=== PATIENT | female | born 1930 | race Caucasian/White ===

== ENCOUNTER 2016-06-28 17:47 | Observation (INO) | payer MEDICARE, OTHER ==
--- OUTSIDE RECORDS SUMMARY | 2016-06-28 18:17 | XMS REPORT | Continuity of Care Document ---
:1930 Author Organization [facility] ([facility]) Address [address] [place] [address] Phone [phone] Care Team Providers Name Role Phone Ninfa Traore Primary Care Provider [phone] Source Comments This disclosure is being made pursuant to the Care Everywhere program, applicable federal and state laws, and may not contain all informaitonavailable regarding this patient.[facility] ([facility]) Active Allergies and Adverse Reactions Allergen Noted Date Severity Reactions Comments Iodinated Contrast Media - Oral And 10/07/2014 Shortness of breath Iv Dye Current Medications Prescription Sig. Disp. Refills Start Date End Date Status aspirin 81 mg EC Take 81 mg by Active tablet mouth daily atorvastatin 10 mg Take 1 Tab ( 30 Tab 11 11/04/2014 Active tablet mg total) by mouth daily PROAIR HFA 90 2 Puffs every 4 01/28/2015 Active mcg/Actuation hours as needed. inhaler LOSARTAN 50 mg Take 50 mg by 01/26/2015 Active tablet mouth daily. VESICARE 5 mg Take 5 mg by 01/26/2015 Active tablet mouth daily. albuterol 0.63 mg/3 Use 0.63 mg by Active mL nebulizer inhalation every solution 4 hours. Per nebulizer sodium chloride Use 2 Sprays 45 mL 11 02/29/2016 Active 0.65 % nasal spray into both nostrils every 1 hour. When awake HYDROcodone-acetami Take 1 tablet by 30 tablet 0 02/29/2016 Active nophen 5-325 mg per mouth every 4 tablet hours as needed for Pain. raNITIdine 150 mg Take 150 mg by Active tablet mouth 2 times daily. citalopram 10 mg Take 10 mg by Active tablet mouth daily. NAPROXEN SODIUM Active (ALEVE PO) amitriptyline 25 mg Take 25 mg by Discontinued tablet mouth at 7 bedtime. pramipexole 0.25 mg at bedtime. 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 MRA 05.: Occlusion of Left distal SFA, ~5 cm occluded segment, reconstituted via bridging collaterals from the profunda to dSFA/prox popliteal. Osteoporosis 12/04/2012 Vertebral compression fracture 12/04/2012 Hypertension 12/04/2012 Nicotine dependence 12/04/2012 Most Recent Encounters Date Type Specialty Providers Description 06/19/2016 Office Visit Otolaryngology Johnathan Chan MD Dx: Carcinoma of nasal septum (Primary Dx) 05/03/2016 Office Visit Otolaryngology Johnathan Chan MD Chief Comp: Patient Reported Reason For Visit Immunizations Name Dates Previously Given Next Due Influenza, unspecified 02/28/2012 Social History Tobacco Use Types Packs/Day Years Used Date Former Smoker Cigarettes 1 60 Quit: 04/12/2016 Smokeless Tobacco: Never Used Tobacco Cessation:Counseling Given: Yes Comments: Alcohol Use Drinks/Week oz/Week Comments Yes 0.5 Standard drinks or equivalent 0.0 Last Filed Vital Signs Vital Sign Reading Time Taken Blood Pressure 147/76 06/19/2016 9:55 AM SPECTROGRAPH OPERATOR Pulse 80 06/19/2016 9:55 AM SPECTROGRAPH OPERATOR Temperature 36.7 C (98.1 F) 06/19/2016 9:55 AM SPECTROGRAPH OPERATOR Respiratory Rate 22 02/29/2016 5:30 PM CDT Height 1.448 m (4' 9") 06/19/2016 9:55 AM SPECTROGRAPH OPERATOR Weight 53.5 kg (117 lb 15.1 oz) 06/19/2016 9:55 AM SPECTROGRAPH OPERATOR Body Mass Index 25.52 06/19/2016 9:55 AM SPECTROGRAPH OPERATOR Oxygen Saturation 96% 02/29/2016 11:18 AM CDT Plan of Care Health Maintenance Due Date Last Done Comments Hepatitis B Vaccine (1 of 3 - Primary Series) 1930 Tdap Vaccine 1940 Lipid Disorder Screening 1947 Td Vaccine 1947 Zoster Vaccine 1989 Pneumococcal Vaccine (1 of 2 - PCV13) 1994 Influenza Vaccine: Seasonal (#1) 12/20/2015 02/28/2012 Results from Last 3 Months Not on file
[2016-06-28] MEDS ORDERED: MORPHINE SULFATE 2 MG/ML DISP.SYRIN ONE (18:49)
[2016-06-28] MEDS ORDERED: MORPHINE SULFATE 2 MG/ML DISP.SYRIN IV ONE (18:50)
[2016-06-28 18:51] LABS: Hematocrit 40.7 % (37.0-47.0); Hemoglobin 13.4 gm/dL (12.5-16.0); Mean Cell Volume 96.4 fl (78-100); Mean Corpuscular Hemoglobin 31.8 pg (27-31); Mean Corpuscular Hgb Conc 32.9 g/dl (32-36); Mean Platelet Volume 9.8 fl (6.0-9.5); Neutrophil % 82.6 % (42-75.0); Platelet Count 225 K/mm3 (150-450); Red Blood Count 4.22 M/mm3 (4.2-5.4); Red Cell Distribution Width 11.9 % (11.5-14.0); White Blood Count 14.5 K/mm3 (4.0-10.5)
[2016-06-28] MEDS ORDERED: ONDANSETRON HCL/PF 2 MG/ML VIAL ONE (18:57)
[2016-06-28 19:04] LABS: Prothrombin Time (Patient) 10.5 Seconds (9.4-11.4)
[2016-06-28] MEDS ORDERED: ONDANSETRON HCL/PF 2 MG/ML VIAL IV ONE (19:05)
[2016-06-28 19:08] LABS: INR 1.01 INR (0.90-1.10)
[2016-06-28 19:09] LABS: ALT 23 U/L (19-67); AST 16 U/L (0-48); Albumin * 3.6 gm/dl (3.4-5.0); Alkaline Phosphatase * 122 U/L (50-170); Anion Gap 11.4 mmol/L (6.8-13.8); BUN/Creatinine Ratio 25.4 (9.0-21.6); Bilirubin, Total 0.4 mg/dL (0.0-1.1); Blood Urea Nitrogen 17 mg/dL (3-23); Ca. Corrected For Albumin 9.4 mg/dL (8.4-10.2); Calcium * 9.4 mg/dL (7.9-10.9); Carbon Dioxide 30.4 mmol/L (24-32.6); Chloride 100 mmol/L (97-106); Glucose * 99 mg/dL (70-110); Potassium 4.8 mmol/L (3.4-4.6); Sodium 137 mmol/L (132-142); Total Protein 7.4 gm/dL (6.2-8.2); Troponin I Less than 0.017 ng/ml (0.00-0.10)
--- NOTE | 2016-06-28 19:37 | ERNOTE ---
Trauma/Assault HPI - Narrative Date of Service: 06/28/16 - General Stated Complaint: FALL Time Seen by Provider: 06/28/16 18:09 Source: patient Exam Limitations: no limitations - Immun/Allergies/Home Medications Immunizations: IMMUNIZATION HX Immunizations Up to Date Yes History of Influenza Vaccine Yes Hx Pneumococcal Vaccination Yes Allergies/Adverse Reactions: Allergies Iodinated Contrast Media - IV Dye Allergy (Severe, Verified 06/28/16 17:58) Anaphylaxis iodine Allergy (Severe, Verified 06/28/16 17:58) Anaphylaxis Home Medications: HOME MEDICATIONS Albuterol Sulfate/Ipratropium [Duoneb 2.5-0.5MG/3ML Soln] 3 ml IH QID #120 vial 02/13/16 [Last Taken Unknown] Aspirin [Children's Aspirin] 81 mg PO DAILY 02/13/16 [Last Taken Unknown] Losartan Potassium [Cozaar] 50 mg PO DAILY 02/13/16 [Last Taken Unknown] Nebulizer [Compact Ultrasonic Nebulizer] 1 each QID #1 kit 02/13/16 [Last Taken Unknown] Solifenacin Succinate [Vesicare] 5 mg PO DAILY 02/13/16 [Last Taken Unknown] ALPRAZolam [Xanax] 0.25 mg PO TID 04/11/16 [Last Taken Unknown] Atorvastatin Calcium 10 mg PO HS 04/11/16 [Last Taken Unknown] Citalopram Hydrobromide [Celexa] 10 mg PO DAILY 04/11/16 [Last Taken Unknown] Doxylamine Succinate [Unisom] 25 mg PO HS 04/11/16 [Last Taken Unknown] Ranitidine HCl [Zantac] 150 mg PO QPM 04/11/16 [Last Taken Unknown] Azithromycin [Zithromax] 250 mg PO DAILY #3 tablet 04/13/16 [Last Taken Unknown] Cefdinir [Omnicef] 300 mg PO Q12H #20 cap 04/13/16 [Last Taken Unknown] predniSONE [Prednisone] 40 mg PO DAILY #24 tablet 04/13/16 [Last Taken Unknown] - History of Present Illness Narrative: Patient presents to the ED with dizziness, fall and right hip pain. She relates that around 3pm , over 4 hours ago she became dizzy and off balance. This persisted but she then fell. She fell and could not get up d/t right hip pain. He denies neck pain. She filally got to her life alert and was brought in by ambulance. Unable to bear weight. No fever. Mild PATTERSON. No syncope. She denies new SOB. No abdominal pain or CP. Her primary c/o is right hip pain, can be severe with movement, better with rest. No acute weakness but dizziness and off balance feeling for over 4 hours. Location Occurred: Reports: home Pain Location: Reports: other - right hip Method of Injury: Reports: fall Severity: severe Modifying Factors - (Improves): Reports: rest Modifying Factors - (Worsens): Reports: movement Loss of Consciousness: Reports: no loss of consciousness Associated Symptoms - Trauma: Reports: headache, dizziness, lightheadedness, trouble walking Review of Systems - Review of Systems Constitutional: Absent: fever Respiratory: Present: other - no new SOB Cardiology: Absent: chest pain Gastrointestinal/Abdominal: Absent: abdominal pain All Other Systems: All systems neg except as marked - Patient's Past Medical History Patient History - Medical: Anxiety, Depression, Migraines, Osteoporosis, Other Patient History - Cardiac/Respiratory: No pertinent hx Patient History - Cancer: Other Patient History - Surgical Procedures: Back Surgery, Cataracts, T & A, Other Patient History - Other: None - Family History Mother Family History - Medical: Arthritis, Osteoarthritis Father Family History - Medical: Alzheimer's Disease - Social History Living Situations: alone Abuse History: No History of abuse Psych History: Hx of Anxiety, Hx of Depression Does anyone smoke in the home?: No Smoking Status: Former smoker Alcohol Use: none Drug Use: none - Immunizations Immunizations Up to Date: Yes Hx Pneumococcal Vaccination: Yes History of Influenza Vaccine: Yes Physical Exam - Physical Exam General Appearance: Present: alert, no apparent distress Eye Exam: Normal inspection: bilateral, PERRL: bilateral Ears, Nose, Throat: Present: normal ENT inspection Neck: Present: normal inspection, nontender Respiratory: Present: other - few scattered wheezes, pt states her lungs are much improved from prior. Cardiovascular/Chest: Present: regular rate, rhythm, normal peripheral pulses Peripheral Pulses: N=norm/S=strong/W=weak/B=bound/A=absent: Dorsalis-pedis (R): Normal Gastrointestinal/Abdominal: Present: normal bowel sounds, nontender, soft, no organomegaly. Absent: tenderness Back Exam: Present: no vertebral tenderness Extremity Exam: Present: other - Pain with ROM right hip. Tendrness right hip Neurological Exam: Present: alert, acid mixer II-XII nml as tested, other - no proinator drift, finger to nose wnl. Cannot lift left leg off the bed d/t pain but can lift left leg. No clear acute stroke findings. Skin Exam: Present: warm/dry ED Progress - Results and Orders Patient's Lab Results:: I have reviewed the patient's lab results. - Vital Signs Patient's Vital Signs:: I have reviewed the patient's vital signs. Vital Signs: Vital Signs 06/28/16 06/28/16 17:51 18:46 Temperature 37.2 C Pulse Rate 95 95 Respiratory 22 H 21 H Rate Blood Pressure 189/90 O2 Sat by Pulse 94 93 Oximetry - EKG EKG read: Interp. by me EKG Comments: Indeterminate rhythm. Rate 73. No STEMI. Non-specific ST/T wave changes. - Progress/Reassessment Chief Complaint: Fall - Transfer of Care Physician Sign Out: Harsh Spears Receiving Physician: Stevan Knight Pending Results: CT/MRI results, Labs, X-ray results Expected Disposition: Admit Departure Clinical Impression: Fall, Hip pain, Dizziness - Departure
[2016-06-28 21:05] LABS: Urine Bilirubin Negative (NEGATIVE); Urine Blood Negative /ul (NEGATIVE); Urine Ketone Negative (NEGATIVE); Urine Nitrite Negative (NEGATIVE); Urine Protein 15 mg/dL (NEGATIVE); Urine Specific Gravity 1.025 SP.GR. (1.005-1.010); Urine Urobilinogen Normal (NORMAL)
--- OUTSIDE RECORDS SUMMARY | 2016-06-28 21:23 | XMS REPORT | Continuity of Care Document ---
:1930 Author Organization [facility] ([facility]) Address [address] [place] [address] Phone [phone] Care Team Providers Name Role Phone Ninfa Traore Primary Care Provider [phone] Source Comments This disclosure is being made pursuant to the Care Everywhere program, applicable federal and state laws, and may not contain all informaitonavailable regarding this patient.[facility] ([facility]) Active Allergies and Adverse Reactions Allergen Noted [...] Taken Blood Pressure 147/76 06/19/2016 9:55 AM DECK ENGINEER Pulse 80 06/19/2016 9:55 AM DECK ENGINEER Temperature 36.7 C (98.1 F) 06/19/2016 9:55 AM DECK ENGINEER Respiratory Rate 22 02/29/2016 5:30 PM CDT Height 1.448 m (4' 9") 06/19/2016 9:55 AM DECK ENGINEER Weight 53.5 kg (117 lb 15.1 oz) 06/19/2016 9:55 AM DECK ENGINEER Body Mass Index 25.52 06/19/2016 9:55 AM DECK ENGINEER Oxygen Saturation 96% 02/29/2016 11:18 AM CDT [...]
[2016-06-28 21:24] LABS: Urine Appearance Clear; Urine Bacteria None Seen; Urine Color Yellow; Urine RBC None Seen /hpf (0-5); Urine WBC None Seen /hpf (0-5)
--- NOTE | 2016-06-28 21:28 | HP ---
Chief Complaint - Chief Complaint Date of Service: 06/28/16 Time of Service: 21:21 Chief Complaint: "Fall, weakness, dizziness". Source of HPI- Pt; reliable, ER provider report. History of Present Illness: Ms. Kirkpatrick is a 86-yr-old [place] pt of Dr. Ninfa Traore with a PMH of: Anxiety, Asthma, GERD, COPD, HTN, HLD, Osteoporosis & Restless Legs Syndrome. Pt states that at approximately 230pm today, she developed abdominal pain and the discomfort caused her to fall over on the sofa. She chose to go to bed at 4pm. She got up at 430 pm to use the toilet but on her her way to bathroom, she felt dizzy. She managed to get back to her room but, while looking for clean undergarments in her drawer, she fell backwards and landed on her RT side of the body. She denies any trauma/injury to the head. She managed to crawl back in bed where she alerted the Life Line and she was brought to the [facility] ER by the emergency squad. During evaluation at the ED, the CXR did not show any evidence of Pneumonia or Pleural effusion. However, the was a RT lung mass seen and according to the pt, she has an up-coming appt for lung biopsy next week at [facility] in [place]. The head CT did not have acute findings. On the other hand, the Pelvis X-ray film showed RT Pubic Ramus Fracture, but no dislocation was noted. Pt will be admitted under observation status due to inability to mobilize and for pain management until evaluated by the industry segment specialist in am. - Patient's Past Medical History Patient History - Medical: Anxiety, Depression, Migraines, Osteoporosis, Other Patient History - Cardiac/Respiratory: No pertinent hx, Asthma, COPD, Hypertension, Hyperlipidemia Patient History - Cancer: Other Patient History - Surgical Procedures: Back Surgery, Cataracts, T & A, Other Patient History - Other: None - Family History Mother Family History - Medical: Arthritis, Osteoarthritis Father Family History - Medical: Alzheimer's Disease - Social History Living Situations: alone Abuse History: No History of abuse Psych History: Hx of Anxiety, Hx of Depression Does anyone smoke in the home?: No Smoking Status: Former smoker - quit 2 month ago. Was a 1ppd smoker for 67 yrs. Alcohol Use: none Drug Use: none - Immunizations Immunizations Up to Date: Yes Hx Pneumococcal Vaccination: Yes History of Influenza Vaccine: Yes Review Of Systems (GEN) - Review of Systems Generalized/Overall Review: Present: Weakness. Absent: Chills, Fever, Fatigue, Weight loss EENTM: Absent: Eye Pain, Blurred Vision, Double Vision, Nose Congestion, Throat Pain Respiratory: Absent: Cough, Shortness of Breath, Wheezing Cardiac: Absent: Chest Pain, Edema, Palpitations Abdominal: Absent: Nausea, Vomiting, Abdominal Pain, Constipation, Diarrhea, Melena Genitourinary: Present: Frequency, Incontinent. Absent: Hematuria Musculoskeletal: Present: Joint Pain, Other - Groin pain. Neurological: Present: Headache, Anxiety, Depressed Skin: Present: Dryness. Absent: Bruising Endocrine: Present: Intolerance to Cold. Absent: Intolerance to Heat, Increased Hunger, Increased Thirst Misc: All systems neg except as marked Allergies/Adverse Reactions: Allergies Allergy/AdvReac Type Severity Reaction Status Date / Time Iodinated Contrast Media - Allergy Severe Anaphylaxis Verified 06/28/16 17:58 IV Dye iodine Allergy Severe Anaphylaxis Verified 06/28/16 17:58 Home Medications: HOME MEDICATIONS Albuterol Sulfate/Ipratropium [Duoneb 2.5-0.5MG/3ML Soln] 3 ml IH QID #120 vial 02/13/16 [Last Taken Unknown] Losartan Potassium [Cozaar] 50 mg PO DAILY 02/13/16 [Last Taken Unknown] Nebulizer [Compact Ultrasonic Nebulizer] 1 each QID #1 kit 02/13/16 [Last Taken Unknown] Atorvastatin Calcium 10 mg PO HS 04/11/16 [Last Taken Unknown] Citalopram Hydrobromide [Celexa] 10 mg PO DAILY 04/11/16 [Last Taken Unknown] Exam - Exam Vital Signs: Vital Signs - Last Taken Temp 37.2 C 06/28/16 17:51 Pulse 114 H 06/28/16 21:04 Resp 23 H 06/28/16 21:04 BP 189/90 06/28/16 17:51 Pulse Ox 91 06/28/16 21:04 Constitutional: Present: Alert, Oriented x3, Cooperative, Mild distress, Elderly ENT Exam: Present: normal ENT inspection, hearing grossly normal, dry mucous membranes. Absent: nasal congestion, nasal drainage Eye Exam: bilateral eye: normal inspection, PERRL Neck: Present: full range of motion, supple, normal inspection, trachea midline Back Exam: Present: no CVA tenderness Breasts: Present: Exam deferred Respiratory: Present: lungs clear, no accessory muscle use, No wheezing Cardiovascular/Chest: Present: normal peripheral pulses, regular rate, rhythm, no murmur Abdomen: Present: Normal bowel sounds, soft, nontender /Rectal: Present: Other - Chirinos Catheter. Extremity: Present: no pedal edema, other - Limited ROM on RLE, unable to bear weight. Tenderness on Groin, Pain with passive ranging of RT hip. Skin Exam: Present: warm/dry, no cyanosis Lymphatic: Present: no adenopathy Neurologic: Present: no motor/sensory deficits, alert, normal mood/affect, oriented x 3. Absent: dizzy/light-headedness Appearance: Present: appropriate appearance, appropriate insight, no memory impairment Eye contact: Present: cooperative, good eye contact, normal speech Thoughts: Present: normal thought pattern, no apparent hallucination Diagnostic Studies: Laboratory Results WBC 14.5 K/mm3 (4.0-10.5) H 06/28/16 18:50 RBC 4.22 M/mm3 (4.2-5.4) 06/28/16 18:50 Hgb 13.4 gm/dL (12.5-16.0) 06/28/16 18:50 Hct 40.7 % (37.0-47.0) 06/28/16 18:50 MCV 96.4 fl (78-100) 06/28/16 18:50 MCH 31.8 pg (27-31) H 06/28/16 18:50 MCHC 32.9 g/dl (32-36) 06/28/16 18:50 RDW 11.9 % (11.5-14.0) 06/28/16 18:50 Plt Count 225 K/mm3 (150-450) 06/28/16 18:50 MPV 9.8 fl (6.0-9.5) H 06/28/16 18:50 Immature Gran % (Auto) 0.90 % (0.001-0.429) H 06/28/16 18:50 Immature Gran # (Auto) 0.13 K/mm3 (0.000-0.0310) H 06/28/16 18:50 Neutrophils % 82.6 % (42-75.0) H 06/28/16 18:50 Lymphocytes % 7.5 % (20-51) L 06/28/16 18:50 Monocytes % 7.0 % (0.0-9) 06/28/16 18:50 Eosinophils % 1.7 % (0.0-3.0) 06/28/16 18:50 Basophils % 0.3 % (0.0-1.0) 06/28/16 18:50 Nucleated RBC % 0.0 k/mm3 (0-1) 06/28/16 18:50 Neutrophils # 12.0 K/mm3 (1.3-6.0) H 06/28/16 18:50 Lymphocytes # 1.1 k/mm3 (1.5-3.5) L 06/28/16 18:50 Monocytes # 1.0 k/mm3 (0.0-1.0) 06/28/16 18:50 Eosinophils # 0.2 k/mm3 (0.0-0.7) 06/28/16 18:50 Absolute Basophils 0.1 k/mm3 (0.0-0.1) 06/28/16 18:50 PT 10.5 Seconds (9.4-11.4) 06/28/16 18:50 INR (Anticoag Therapy) 1.01 INR (0.90-1.10) 06/28/16 18:50 Sodium 137 mmol/L (132-142) 06/28/16 18:50 Plasma Sodium 137 mmol/L (130-142) 06/28/16 18:50 Potassium 4.8 mmol/L (3.4-4.6) H 06/28/16 18:50 Chloride 100 mmol/L (97-106) 06/28/16 18:50 Carbon Dioxide 30.4 mmol/L (24-32.6) 06/28/16 18:50 Anion Gap 11.4 mmol/L (6.8-13.8) 06/28/16 18:50 BUN 17 mg/dL (3-23) 06/28/16 18:50 Creatinine 0.67 mg/dL (0.4-1.4) 06/28/16 18:50 Est GFR (Non-Af Amer) 88 mL/min (60-130) D 06/28/16 18:50 BUN/Creatinine Ratio 25.4 (9.0-21.6) H 06/28/16 18:50 Random Glucose 99 mg/dL (70-110) 06/28/16 18:50 Calcium 9.4 mg/dL (7.9-10.9) 06/28/16 18:50 Calcium Adj for Albumin 9.4 mg/dL (8.4-10.2) 06/28/16 18:50 Total Bilirubin 0.4 mg/dL (0.0-1.1) 06/28/16 18:50 AST 16 U/L (0-48) 06/28/16 18:50 ALT 23 U/L (19-67) 06/28/16 18:50 Alkaline Phosphatase 122 U/L (50-170) 06/28/16 18:50 Troponin I Less than 0.017 ng/ml (0.00-0.10) 06/28/16 18:50 Total Protein 7.4 gm/dL (6.2-8.2) 06/28/16 18:50 Albumin 3.6 gm/dl (3.4-5.0) 06/28/16 18:50 Assessment/Plan - Assessment/Plan (1) Pubic ramus fracture Assessment: Ms Kirkpatrick sustained a RT pubic Ramus Fracture during a fall at home today. She will be admitted under observation status for pain management. Orthopedics -Dr. Aldridge notified by the ERP and he is aware and will evaluate pt in am if there is any need for surgical intervention. Hospital admission is indicated due to inability to ambulate and intractable pain. Will involve PT for early mobilization. Problem: Acute (2) HLD (hyperlipidemia) Problem: Chronic (3) HTN (hypertension) Problem: Chronic (4) COPD (chronic obstructive pulmonary disease) Problem: Chronic (5) Anxiety Problem: Chronic (6) Migraine Problem: Chronic
[2016-06-28] MEDS: NORMAL SALINE 1,000 ML IV PRN (22:30)
[2016-06-28] MEDS: HYDROmorphone HCL 1 MG/ML DISP.SYRIN IV PRN (22:34)
[2016-06-29] MEDS ORDERED: HYDROcodone/ACETAMINOPHEN 1 EACH TABLET PO PRN (00:28)
[2016-06-29] MEDS ORDERED: ALBUTEROL SULFATE 200 PUFF INHALER IH PRN (00:28)
[2016-06-29] MEDS ORDERED: ALBUTEROL SULFATE/IPRATROPIUM 3 ML NEBU IH PRN (00:28)
[2016-06-29] MEDS: HYDROmorphone HCL 1 MG/ML DISP.SYRIN IV PRN ×3 (01:45→08:00)
[2016-06-29 05:59] LABS: Hematocrit 39.1 % (37.0-47.0); Hemoglobin 12.7 gm/dL (12.5-16.0); Mean Cell Volume 97.5 fl (78-100); Mean Corpuscular Hemoglobin 31.7 pg (27-31); Mean Corpuscular Hgb Conc 32.5 g/dl (32-36); Mean Platelet Volume 9.8 fl (6.0-9.5); Neutrophil # 7.9 K/mm3 (1.3-6.0); Neutrophil % 81.9 % (42-75.0); Platelet Count 213 K/mm3 (150-450); Red Blood Count 4.01 M/mm3 (4.2-5.4); White Blood Count 9.7 K/mm3 (4.0-10.5)
[2016-06-29 06:12] LABS: Anion Gap 12.6 mmol/L (6.8-13.8); BUN/Creatinine Ratio 23.9 (9.0-21.6); Calcium * 8.3 mg/dL (7.9-10.9); Potassium 4.6 mmol/L (3.4-4.6)
[2016-06-29] MEDS ORDERED: ALBUTEROL SULFATE 2.5 MG/0.5 ML VIAL.NEB IH PRN ×2 (06:29→11:19)
[2016-06-29] MEDS: NORMAL SALINE 1,000 ML IV PRN ×2 (06:35→23:24)
[2016-06-29] MEDS: MULTIVIT WITH IRON-MINERALS 1 TAB TABLET PO SCH (10:06)
[2016-06-29] MEDS: CITALOPRAM HYDROBROMIDE 10 MG TABLET PO SCH (10:06)
[2016-06-29] MEDS: TIOTROPIUM BROMIDE 5 CAP INHALER IH SCH (10:07)
[2016-06-29] MEDS: LOSARTAN POTASSIUM 50 MG TABLET PO SCH (10:07)
[2016-06-29] MEDS: HYDROcodone/ACETAMINOPHEN 1 EACH TABLET PO SCH ×3 (10:07→22:18)
[2016-06-29] MEDS: FAMOTIDINE 20 MG TABLET PO SCH ×2 (10:07→20:10)
[2016-06-29] MEDS: OXYBUTYNIN CHLORIDE 5 MG TABLET PO SCH (10:07)
[2016-06-29] MEDS: POLYETHYLENE GLYCOL 3350 119 GM BTL PO SCH (10:07)
--- NOTE | 2016-06-29 19:10 | PN ---
Subjective - Date and Time Seen Date: 06/29/16 Time: 09:15 Subjective Narrative: Patient reports too much pain to ambulate, weak. Denies f/c/n/v. Objective - Vitals Vitals: Last Vital Signs Temp 37.6 C H 06/29/16 15:00 Pulse 89 06/29/16 15:00 Resp 20 06/29/16 15:00 BP 140/57 06/29/16 15:00 Pulse Ox 90 06/29/16 15:00 - Abnormal Lab Findings Abnormal Lab Findings: Abnormal Lab Results 06/29/16 06/29/16 Range/Units 05:43 05:43 RBC 4.01 L (4.2-5.4) M/mm3 MCH 31.7 H (27-31) pg MPV 9.8 H (6.0-9.5) fl Neutrophils % 81.9 H (42-75.0) % Lymphocytes % 8.4 L (20-51) % Neutrophils # 7.9 H (1.3-6.0) K/mm3 Lymphocytes # 0.8 L (1.5-3.5) k/mm3 BUN/Creatinine Ratio 23.9 H (9.0-21.6) Random Glucose 122 H (70-110) mg/dL - Exam Constitutional: Present: Alert, Oriented x3, Cooperative Cardiovascular/Chest: Present: regular rate, rhythm, systolic murmur - 2+ Abdomen: Present: Normal bowel sounds, soft, nontender, nondistended Skin Exam: Present: normal color, warm/dry, no cyanosis Cauti Physician Documentation - Urinary Catheter Management Urethral (Chirinos) Date of Insertion: 06/28/16 Time of Insertion: 21:04 Assessment/Plan - Problems/Diagnosis (1) Pubic ramus fracture Problem: Acute Qualifiers: Fracture type: closed Narrative: Patient will need continued PT for strengthening. Unable to ambulate adequately , will need pen[facility]entiary placement for therapy.
[2016-06-29] MEDS ORDERED: PRAMIPEXOLE DI-HCL 0.5 MG TABLET PO SCH (21:00)
[2016-06-29] MEDS ORDERED: ROSUVASTATIN CALCIUM 10 MG TABLET PO SCH (21:00)
[2016-06-29] MEDS ORDERED: ATORVASTATIN CALCIUM 10 MG TABLET PO SCH (21:00)
[2016-06-29] MEDS: ONDANSETRON HCL/PF 2 MG/ML VIAL IV PRN (22:05)
[2016-06-30] MEDS: ONDANSETRON HCL/PF 2 MG/ML VIAL IV PRN ×2 (02:34→06:59)
[2016-06-30] MEDS: HYDROcodone/ACETAMINOPHEN 1 EACH TABLET PO SCH ×2 (04:44→09:00)
[2016-06-30 06:54] VITALS: BP 150/72
[2016-06-30] MEDS: NORMAL SALINE 1,000 ML IV PRN (08:34)
[2016-06-30] MEDS ORDERED: ALPRAZolam 0.25 MG TABLET PO PRN (08:44)
[2016-06-30] MEDS: HYDROmorphone HCL 1 MG/ML DISP.SYRIN IV PRN (08:50)
[2016-06-30] MEDS: CITALOPRAM HYDROBROMIDE 10 MG TABLET PO SCH (08:52)
[2016-06-30] MEDS: OXYBUTYNIN CHLORIDE 5 MG TABLET PO SCH (08:52)
[2016-06-30] MEDS: FAMOTIDINE 20 MG TABLET PO SCH (08:52)
[2016-06-30] MEDS: MULTIVIT WITH IRON-MINERALS 1 TAB TABLET PO SCH (08:52)
[2016-06-30] MEDS: TIOTROPIUM BROMIDE 5 CAP INHALER IH SCH (08:52)
[2016-06-30] MEDS: LOSARTAN POTASSIUM 50 MG TABLET PO SCH (08:52)
[2016-06-30] MEDS: POLYETHYLENE GLYCOL 3350 119 GM BTL PO SCH (08:52)
--- NOTE | 2016-06-30 11:49 | DS ---
(1) Pubic ramus fracture Diagnosis(s): Elham is an 86 yo female admitted for pubic ramus fracture. Fracture was stable and did not require surgery. Recommendations from ortho for PT. Patient was admitted to observation for pain control and therapy. She was unable to ambulate without assistance and will need continued therapy at [facility]. She is otherwise medically stable. Problem: Acute Qualifiers: Fracture type: closed (2) Lung mass Diagnosis(s): She has outpatient plans to have this biopsied by Dr. Sifuentes. Discussed that if the patient and family would like to set up CT guiding lung biopsy here that we can. They will plan to discuss with Dr. Sifuentes. Problem: Acute (3) Tobacco abuse Problem: Chronic (4) Hypoxia Problem: Acute Procedures Performed: none Discharge Disposition: [facility] Disposition: [facility] Condition: Fair Discharge Activity: Activity as tolerated Discharge Diet: General/regular food Care Home Therapy: Physicial Therapy, Occupation Therapy Referrals: Gurdeep Ohara MD [Staff Physician] - (To follow at [facility]) Problem Oriented Discharge Instructions to Patient/Family: Simple Pelvic Fracture, Adult Additional Patient Instructions (free text): Oxygen 2lpm continuous, may wean off oxygen as able to keep oxygen saturation > 90% Right hip and pelvis xray in 2 weeks after discharge. Prescriptions (Any new or edited meds): ALPRAZolam [Xanax] 0.25 mg PO TID PRN #90 tablet PRN Reason: Anxiety Hydrocodone/Acetaminophen [Lorcet 5-325 mg Tablet] 1 each PO Q6H PRN #120 tablet PRN Reason: Pain Pramipexole Di-HCl [Mirapex] 0.25 mg PO HS #30 tablet Complete Home Medications List: Complete Home Medication List: Albuterol Sulfate/Ipratropium [Duoneb 2.5-0.5MG/3ML Soln] 3 ml IH QID #120 vial 02/13/16 Losartan Potassium [Cozaar] 50 mg PO DAILY 02/13/16 Nebulizer [Compact Ultrasonic Nebulizer] 1 each MC QID #1 kit 02/13/16 Atorvastatin Calcium 10 mg PO HS 04/11/16 Citalopram Hydrobromide [Celexa] 10 mg PO DAILY 04/11/16 Albuterol Sulfate [Proair Hfa] 1 - 2 puff IH Q6H PRN 06/28/16 Ibuprofen [Motrin] 200 - 800 mg PO Q8H PRN 06/28/16 Multivitamin [One Daily Essential] 1 each PO DAILY 06/28/16 Oxybutynin Chloride [Ditropan] 5 mg PO DAILY 06/28/16 Polyethylene Glycol 3350 [Miralax] 17 gm PO DAILY 06/28/16 Ranitidine HCl [Heartburn Relief] 150 mg PO BID 06/28/16 Tiotropium [place] [Spiriva] 18 mcg IH DAILY 06/28/16 ALPRAZolam [Xanax] 0.25 mg PO TID PRN #90 tablet 06/30/16 Hydrocodone/Acetaminophen [Lorcet 5-325 mg Tablet] 1 each PO Q6H PRN #120 tablet 06/30/16 Pramipexole Di-HCl [Mirapex] 0.25 mg PO HS #30 tablet 06/30/16 Amb Orders for Discharge: Hip & Pelvis 2-3 Views RT * Time Frame: 2 Weeks, Facility: [facility], Location: Radiology Pelvis 1 View * Time Frame: 2 Weeks, Facility: [facility], Location: Radiology
== END 2016-06-30 13:05 ==
LOC: ER 17:47 → UNDOADMOB 21:19 → MS 21:19
PROVIDERS: ADMIT Nurse Practitioner; ATTEND Family Medicine
PROC: 0T9B70Z Drainage of Bladder with Drainage Device, Via Natural or Artificial Opening (ICD-10-PCS; principal; 2016-06-28)
DX: S32.511A Fracture of superior rim of right pubis, initial encounter for closed fracture (principal); R53.1 Weakness; F41.9 Anxiety disorder, unspecified; K21.9 Gastro-esophageal reflux disease without esophagitis; F17.200 Nicotine dependence, unspecified, uncomplicated; M81.0 Age-related osteoporosis without current pathological fracture; I10 Essential (primary) hypertension; J44.9 Chronic obstructive pulmonary disease, unspecified; W01.0XXA Fall on same level from slipping, tripping and stumbling without subsequent striking against object, initial encounter; Z91.81 History of falling; Y92.013 Bedroom of single-family (private) house as the place of occurrence of the external cause
CPT/HCPCS: 36415; 51702; 70450; 71010; 72190; 73502; 80048; 80053; 81001; 84484; 85025; 85610; 93005; 94640; 96374; 96375; 96376; 97110; 97116; 97161; 99284; G0378; G8978; G8979; G8980

== ENCOUNTER 2016-10-25 14:32 | Emergency (ER) | payer MEDICARE, OTHER ==
--- NOTE | 2016-10-25 15:18 | ERNOTE ---
Medical Problem HPI - General Chief Complaint: General Assessment Time Seen by Provider: 10/25/16 15:04 Source: patient, family Exam Limitations: no limitations - Immun/Allergies/Home Medications Immunizations: IMMUNIZATION HX Immunizations Up to Date Yes History of Influenza Vaccine Yes Hx Pneumococcal Vaccination Yes Allergies/Adverse Reactions: Allergies Iodinated Contrast Media - Oral and [Iodinated Contrast Media - IV Dye] Allergy (Severe, Verified 10/25/16 14:39) Anaphylaxis iodine Allergy (Severe, Verified 10/25/16 14:39) Anaphylaxis Home Medications: HOME MEDICATIONS Albuterol Sulfate/Ipratropium [Duoneb 2.5-0.5MG/3ML Soln] 3 ml IH QID #120 vial 02/13/16 [Last Taken Unknown] Losartan Potassium [Cozaar] 50 mg PO DAILY 02/13/16 [Last Taken Unknown] Nebulizer [Compact Ultrasonic Nebulizer] 1 each QID #1 kit 02/13/16 [Last Taken Unknown] Atorvastatin Calcium 10 mg PO HS 04/11/16 [Last Taken Unknown] Citalopram Hydrobromide [Celexa] 10 mg PO DAILY 04/11/16 [Last Taken Unknown] Albuterol Sulfate [Proair Hfa] 1 - 2 puff IH Q6H PRN 06/28/16 [Last Taken Unknown] Ibuprofen [Motrin] 200 - 800 mg PO Q8H PRN 06/28/16 [Last Taken Unknown] Multivitamin [One Daily Essential] 1 each PO DAILY 06/28/16 [Last Taken Unknown] Oxybutynin Chloride [Ditropan] 5 mg PO DAILY 06/28/16 [Last Taken Unknown] Polyethylene Glycol 3350 [Miralax] 17 gm PO DAILY 06/28/16 [Last Taken Unknown] Ranitidine HCl [Heartburn Relief] 150 mg PO BID 06/28/16 [Last Taken Unknown] Tiotropium [place] [Spiriva] 18 mcg IH DAILY 06/28/16 [Last Taken Unknown] ALPRAZolam [Xanax] 0.25 mg PO TID PRN #90 tablet 06/30/16 [Last Taken Unknown] Pramipexole Di-HCl [Mirapex] 0.25 mg PO HS #30 tablet 06/30/16 [Last Taken Unknown] HYDROcodone/ACETAMINOPHEN [Lorcet 5-325 mg Tablet] 1 each PO Q6H PRN #20 tablet 10/25/16 [Last Taken Unknown] - History of Present History Narrative: Patient was reaching over to the side a couple of days ago, felt a pop and thinks that she might have cracked a couple of ribs on her left side. She has a history of osteoporosis and has broken ribs before. The pain is controlled on vicodin that she has had from before. She denies any other new symptoms. She has COPD is on O2 and steroids, is scheduled to have a biosie for possible lung cancer in [facility] Date (Duration): 10/23/16 Review of Systems - Review of Systems Constitutional: Absent: recent illness, fever ENT: Absent: nose congestion, sore throat Respiratory: Absent: shortness of breath, cough Cardiology: Present: See HPI Gastrointestinal/Abdominal: Present: constipation. Absent: nausea, vomiting, abdominal pain Genitourinary: Present: no symptoms reported Musculoskeletal: Present: See HPI Neurological: Absent: headache, weakness, numbness - Patient's Past Medical History Patient History - Medical: Anxiety, Depression, Migraines, Osteoporosis, Other Patient History - Cardiac/Respiratory: No pertinent hx, Asthma, COPD, Hypertension, Hyperlipidemia, Home O2 Use Patient History - Cancer: Other Patient History - Surgical Procedures: Back Surgery, Cataracts, T & A, Other Patient History - Other: None LMP (females 10-50): Menopausal - Family History Mother Family History - Medical: Arthritis, Osteoarthritis Father Family History - Medical: Alzheimer's Disease - Social History Living Situations: assisted living Abuse History: No History of abuse Psych History: Hx of Anxiety, Hx of Depression, Current tx/ever been on anti- depressants or anti-anxiety meds Does anyone smoke in the home?: No Smoking Status: Former smoker Have you smoked in the past 12 months: Yes Alcohol Use: none Drug Use: none - Immunizations Immunizations Up to Date: Yes Hx Pneumococcal Vaccination: Yes History of Influenza Vaccine: Yes Physical Exam - Physical Exam General Appearance: Present: wd/wn, alert, no apparent distress Respiratory: Present: no respiratory distress, no accessory muscle use, lungs clear, chest tenderness - left lateral chest, no crepitus, decreased breath sounds, expiration (prolonged), other - no echymosis or deformity Gastrointestinal/Abdominal: Present: nontender, soft Back Exam: Present: normal inspection Neurological Exam: Present: alert, oriented, normal mood/affect Skin Exam: Present: normal color, warm/dry ED Progress - Vital Signs Patient's Vital Signs:: I have reviewed the patient's vital signs. Vital Signs: Vital Signs 10/25/16 14:34 Temperature 37.0 C Pulse Rate 70 Respiratory 18 Rate Blood Pressure 120/47 O2 Sat by Pulse 96 Oximetry - X-Ray X-Ray #1 X-Ray: chest - fluid overload, probable lateral left mid rib fracture Interpretation: Reviewed by me - Progress/Reassessment Chief Complaint: General Assessment Progress Note-Subjective: 10/25/16 15:50 discussed results with patient and family, will address only acute not chronic problems Departure - Departure Clinical Impression: Left rib fracture Qualifiers: Encounter type: initial encounter Rib fracture type: single rib Fracture type: closed Qualified Code(s): S22.32XA - Fracture of one rib, left side, initial encounter for closed fracture Disposition: Home self-care Condition: Good Instructions: Rib Fracture, [id number] Referrals: Ninfa Traore MD [Primary Care Provider] - Prescriptions: HYDROcodone/ACETAMINOPHEN [Lorcet 5-325 mg Tablet] 1 each PO Q6H PRN #20 tablet PRN Reason: Pain
--- OUTSIDE RECORDS SUMMARY | 2016-10-25 15:26 | XMS REPORT | Continuity of Care Document ---
:1930 Author Organization [facility] ([facility]) Address [address] [place] [address] Phone [phone] Care Team Providers Name Role Phone Ninfa Traore Primary Care Provider [phone] Source Comments This disclosure is being made pursuant to the Care Everywhere program, applicable federal and state laws, and may not contain all informaitonavailable regarding this patient.[facility] ([facility]) Active Allergies and Adverse Reactions Allergen Noted Date Severity Reactions Comments Iodinated Contrast- Oral And Iv Dye 10/07/2014 Shortness of breath Levofloxacin 09/25/2016 Unknown Current Medications Prescription Sig. Disp. Refills Start Date End Date Status PROAIR HFA 90 2 Puffs every 4 01/28/2015 Active mcg/Actuation hours as inhaler needed. sodium chloride 0.65 Use 2 Sprays 45 mL 11 02/29/2016 Active % nasal spray into both nostrils every 1 hour. When awake HYDROcodone-acetamin Take 1 tablet 30 tablet 0 02/29/2016 Active ophen 5-325 mg per by mouth every tablet 4 hours as needed for Pain. raNITIdine 150 mg Take 150 mg by Active tablet mouth 2 times daily. citalopram 10 mg Take 10 mg by Active tablet mouth daily. NAPROXEN SODIUM Active (ALEVE PO) ALPRAZolam 0.25 mg Take 0.25 mg by Active tablet mouth 2 times daily as needed. ALPRAZolam 0.25 mg Take 0.25 mg by Active tablet mouth every 8 hours. albuterol-ipratropiu Use 3 mL by Active m 2.5-0.5 mg/3 mL inhalation inhalation solution every 6 hours. meclizine 25 mg Take 25 mg by Active tablet mouth 4 times daily as needed. oxybutynin 5 mg Take 5 mg by Active tablet mouth daily. risperiDONE 0.5 mg Take 0.5 mg by Active tablet mouth at bedtime. sennosides 8.6 mg Take 2 tablets Active tablet by mouth daily. tiotropium (SPIRIVA) Use 18 mcg by Active 18 mcg inhalation inhalation capsule daily. traZODone 150 mg Take 150 mg by Active tablet mouth at bedtime. albuterol 90 Use 2 Puffs by Active mcg/Actuation inhalation inhaler every 6 hours as needed. aspirin 81 mg EC Take 81 mg by Active tablet mouth daily. ACETAMINOPHEN/DIPHEN Take by mouth Active HYDRAMINE (TYLENOL at bedtime. PM PO) losartan 100 mg 10/10/2016 Active tablet ondansetron 4 mg 08/15/2016 Active disintegrating tablet polyethylene glycol 08/15/2016 Active 3350 (MIRALAX) 17 gram/dose powder predniSONE 5 mg 10/10/2016 Active tablet trimethoprim-sulfame 10/10/2016 Active thoxazole 160-800 mg per tablet LOSARTAN 50 mg Take 50 mg by 01/26/2015 Discontinued tablet mouth daily. 7 polyethylene glycol Take 17 g by Discontinued 3350 17 gram packet mouth daily as 7 needed. 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 MRA 10.05.2014: Occlusion of Left distal SFA, ~5 cm occluded segment, reconstituted via bridging collaterals from the profunda to dSFA/prox popliteal. Osteoporosis 12/04/2012 Vertebral compression fracture 12/04/2012 Hypertension 12/04/2012 Nicotine dependence 12/04/2012 Most Recent Encounters Date Type Specialty Providers Description 10/25/2016 Telephone Med Hematology and Rogers Edwards PA-C Chief Comp: Discuss Oncology Test Results 10/24/2016 Telephone Med Hematology and Trudi Blake Chief Comp: Patient Oncology Concern 10/18/2016 Hospital Encounter Radiology Beth Fleming, Dx: Malignant MD neoplasm of lung, unspecified laterality, unspecified part of lung (Primary Dx) 10/12/2016 Office Visit Med Hematology and Ronnie Culver, Dx: Right lower Oncology lobe lung mass (Primary Dx) 10/09/2016 Hospital Encounter Radiology Humphrey Marie MD Chief Comp: Patient Reported Reason For Visit 10/09/2016 Ancillary Orders Med Hematology and Ronnie Culver Oncology 10/05/2016 Hospital Encounter Radiology Humphrey Marie MD Chief Comp: Patient Reported Reason For Visit 10/05/2016 Hospital Encounter Radiology Humphrey Marie MD Chief Comp: Patient Reported Reason For Visit 10/05/2016 Hospital Encounter Radiology Humphrey Marie MD Chief Comp: Patient Reported Reason For Visit 09/25/2016 Hospital Encounter Hematology and Donte Feliz, Dx: Squamous cell Oncology carcinoma of nasal cavity (Primary Dx) 09/01/2016 Telephone Med Hematology and Bakari Coon Chief Comp: Oncology J Referral Immunizations Name Dates Previously Given Next Due Influenza, unspecified 02/28/2012 Social History Tobacco Use Types Packs/Day Years Used Date Former Smoker Cigarettes 1 60 Quit: 04/12/2016 Smokeless Tobacco: Never Used Tobacco Cessation:Counseling Given: Yes Comments: Alcohol Use Drinks/Week oz/Week Comments No .5 Standard drinks or equivalent 0.0 Last Filed Vital Signs Vital Sign Reading Time Taken Blood Pressure 144/64 10/12/2016 10:46 AM CDT Pulse 83 10/12/2016 10:46 AM CDT Temperature 37.4 C (99.3 F) 10/12/2016 10:46 AM CDT Respiratory Rate 28 10/12/2016 10:46 AM CDT Height 1.45 m (4' 9.09") 10/18/2016 12:46 PM CDT Weight 52.5 kg (115 lb 11.9 oz) 10/18/2016 12:46 PM CDT Body Mass Index 24.97 10/18/2016 12:46 PM CDT Oxygen Saturation 95% 10/12/2016 10:46 AM CDT Plan of Care Health Maintenance Due Date Last Done Comments Hepatitis B Vaccine (1 of 3 - Primary Series) 1930 Tdap Vaccine 1940 Lipid Disorder Screening 1948 Td Vaccine 1948 Zoster Vaccine 1989 Pneumococcal Vaccine (1 of 2 - PCV13) 1994 Influenza Vaccine: Seasonal (Season Ended) 2016 02/28/2012 Results from Last 3 Months PET / CT F-18 FDG TUMOR SKULL BASE TO MID-THIGH (94238) (10/18/2016 2:52 PM) Impressions Impression: 1. Significant interval increases in size and FDG-avidity of dominant RLL mass as well as right perihilar and subcarinal nodes. 2. Increased size and FDG uptake in smaller RUL lobe nodule is suspicious for additional malignancy. New 5 mm RUL juxtapleural nodule which too small for accurate PET characterization. 3. Subacute to chronic appearing fracture of right inferior pubic ramus. 4. Associated new RML collapse due to mass effect from perihilar node. 5. New mild to moderate sized pericardial effusion. Narrative Procedure:PET / CT F-18 FDG TUMOR SKULL BASE TO MID-THIGH (45820) Indication: Right lower lobe mass not biopsied. Additional history includes broken pelvis in June 2016. Radiopharmaceutical: F-18 Fluorodeoxyglucose (FDG) 7.45 mCi IV in left antecubital fossa at 1300 hrs. Technique: Study performed in fasting state with baseline blood glucose of 105 mg/dl. Images from skull base to mid thighs were acquired on a Siemens DroneCastgraph PET-CT with PET imaging in 3-D mode. CT was performed for attenuation correction and anatomic correlation. Reconstructed PET, CT, and fused PET-CT images were reviewed on computer monitor in coronal, sagittal, and transverse planes. FDG uptake period was 85 min. Comparison: Prior exam dated 02/10/2016. Findings: Head & neck show no FDG avid lesions are seen.. Chest shows dominant right lower lobe (RLL) lesion measures 3.3 cm, previously 1.5 cm (SUVmax 15.3). Right upper lobe (RUL) anterior segment spiculated lesion measures 1.2 cm (versus 0.5 cm previously) demonstrates mild FDG uptake (SUVmax 3.3). New 5 mm right upper lobe juxtapleural nodule is below the sensitivity for PET. Right perihilar node increased in size and FDG uptake (SUVmax 9.9). Enlarged subcarinal lymph node with increased uptake (SUVmax 14.0). New atelectatic changes in the right middle lobe (RML) with narrowing of the RML bronchus at level of the right hilar node. New non-FDG avid pericardial effusion. Abdomen-pelvis shows no FDG avid lesions. Stable cysts in the liver. Otherwise normal appearance of the liver, spleen, pancreas, adrenal glands, bilateral kidneys. No solid organ lesions nor lymphadenopathy. Bones show no FDG avid lesions. Diffuse osteopenia of the spine with severe kyphotic deformity is noted. Multilevel kyphoplasty is seen..Subacute to chronic appearing fracture of the right inferior pubic ramus. As no underlying lesion is seen, this is consistent with traumatic rather than pathologic etiology. Visualized extremities are otherwise unremarkable. Procedure Note Marc, Incoming Imaging Results - [facility] Oct 19, 2016 11:28 AM CDT Procedure:PET / CT F-18 FDG TUMOR SKULL BASE TO MID-THIGH (41122) Indication: Right lower lobe mass not biopsied. Additional history includes broken pelvis in June 2016. Radiopharmaceutical: F-18 Fluorodeoxyglucose (FDG) 7.45 mCi IV in left antecubital fossa at 1300 hrs. Technique: Study performed in fasting state with baseline blood glucose of 105 mg/dl. Images from skull base to mid thighs were acquired on a Siemens DroneCastgraph PET-CT with PET imaging in 3-D mode. CT was performed for attenuation correction and anatomic correlation. Reconstructed PET, CT, and fused PET-CT images were reviewed on computer monitor in coronal, sagittal, and transverse planes. FDG uptake period was 85 min. Comparison: Prior exam dated 02/10/2016. Findings: Head & neck show no FDG avid lesions are seen.. Chest shows dominant right lower lobe (RLL) lesion measures 3.3 cm, previously 1.5 cm (SUVmax 15.3). Right upper lobe (RUL) anterior segment spiculated lesion measures 1.2 cm (versus 0.5 cm previously) demonstrates mild FDG uptake (SUVmax 3.3). New 5 mm right upper lobe juxtapleural nodule is below the sensitivity for PET. Right perihilar node increased in size and FDG uptake (SUVmax 9.9). Enlarged subcarinal lymph node with increased uptake (SUVmax 14.0). New atelectatic changes in the right middle lobe (RML) with narrowing of the RML bronchus at level of the right hilar node. New non-FDG avid pericardial effusion. Abdomen-pelvis shows no FDG avid lesions. Stable cysts in the liver. Otherwise normal appearance of the liver, spleen, pancreas, adrenal glands, bilateral kidneys. No solid organ lesions nor lymphadenopathy. Bones show no FDG avid lesions. Diffuse osteopenia of the spine with severe kyphotic deformity is noted. Multilevel kyphoplasty is seen..Subacute to chronic appearing fracture of the right inferior pubic ramus. As no underlying lesion is seen, this is consistent with traumatic rather than pathologic etiology. Visualized extremities are otherwise unremarkable. IMPRESSION Impression: 1. Significant interval increases in size and FDG-avidity of dominant RLL mass as well as right perihilar and subcarinal nodes. 2. Increased size and FDG uptake in smaller RUL lobe nodule is suspicious for additional malignancy. New 5 mm RUL juxtapleural nodule which too small for accurate PET characterization. 3. Subacute to chronic appearing fracture of right inferior pubic ramus. 4. Associated new RML collapse due to mass effect from perihilar node. 5. New mild to moderate sized pericardial effusion. BLOOD GLUCOSE, BEDSIDE (10/18/2016 12:39 PM) Component Value Range Glucose, Accu-Chek 105(H) 65-99 mg/dL Specimen Blood, capillary DIFFERENTIAL (10/12/2016 12:45 PM) Component Value Range % Neutrophils-Auto Diff 81.9 % Neutrophils-Auto Diff 6880 8440-3140 /MM3 % Lymphocytes-Auto Diff 11.0 % Lymphocytes-Auto Diff 608 528-3741 /MM3 % Monocytes-Auto Diff 5.5 % Monocytes-Auto Diff 460 130-860 /MM3 % Eosinophils-Auto Diff 0.8 % Eosinophils-Auto Diff 70 40-390 /MM3 % Basophils 0.4 % Basophils-Auto Diff 30 10-136 /MM3 % Immature Granulocytes-Auto Diff 0.4 % Immature Granulocytes-Auto Diff 30 /MM3 Specimen Whole Blood CBC (COMPLETE BLOOD COUNT) (10/12/2016 12:45 PM) Component Value Range WBC Count 8.4 3.7-10.5 K/MM3 RBC Count 4.26 4.00-5.20 M/MM3 Hemoglobin 12.9 11.9-15.5 g/dL Hematocrit 40 35-47 % MCV (Mean Corpuscular Volume) 94 82-99 FL MCH (Mean Corpuscular Hemoglobin) 30 25-35 PG MCHC (Mean Corpuscular Hemoglobin Concentration) 32 32-36 % Platelet Count 265 150-400 K/MM3 MPV (Mean Platelet Volume) 9.7 9.4-12.3 FL RBC Dist Width-STD 46.1 36.4-46.3 FL RBC Distrib Width 13.3 9.0-14.5 % Nucleated RBC 0 /100 WBC Specimen Whole Blood COMPREHENSIVE METABOLIC PANEL (CMP) (10/12/2016 12:45 PM) Component Value Range Sodium 133(L) 135-145 mEq/L Potassium 5.0 3.5-5.0 mEq/L Chloride 93(L) 95-107 mEq/L CO2 28 22-29 mEq/L BUN 13 10-20 mg/dL Creatinine 0.7Comment: 0.5-1.0 mg/dL Creatinine switched to enzymatic method on 09/27/2010.GFR equation switched to IDMS-traceable MDRD equation on 09/27/2010. Calculated GFR values are not valid in clinical settings where serum creatinine is changing. Glucose 106(H)Comment: 65-99 mg/dL The Expert Committee on the Diagnosis and Classification of Diabetes has defined impaired fasting glucose as greater than or equal to 100 mg/dL but less than 126 mg/dL.(Diabetes Care 28 (Suppl 1)S41,2005) Calcium 9.8 8.5-10.5 mg/dL Total Protein 7.4 6.0-8.0 g/dL Albumin 4.1 3.4-4.8 g/dL AST 14Comment: 0-32 U/L Adult reference ranges updated on 04/15/13 at 830am ALP 126(H) 35-104 U/L Bilirubin Total 0.3 <=1.2 mg/dL ALT 8Comment: 0-33 U/L The upper limit of normal for alanine aminotransferase (ALT) reference ranges for adults is controversial with some authorities recommending limit as low as 30 U/L for males and 19 U/L for females. Th ere is increased incidence of subclinical liver disease (e.g., early steatohepatitis) in patients with ALT values in the range of 31-41 U/L for males and 20-33 U/L for females. ALT values should alway s be interpreted in conjunction with clinical history, physical examination findings, and, if applicable, data from other diagnostic tests. Anion Gap 12 <17 mEq/L Calculated GFR 79 >60 mL/min/1.73 m2 Specimen Blood CBC WITH DIFFERENTIAL (10/12/2016 12:45 PM) Specimen Whole Blood Narrative The following orders were created for panel order CBC WITH DIFFERENTIAL. Procedure Abnormality Status --------- ------ CBC (COMPLETE BLOOD COUNT)[[id number]] Final result DIFFERENTIAL[[id number]] Final result Please view results for these tests on the individual orders. EXTERNAL PL FILMS - STORE ONLY (10/09/2016 8:50 AM)EXTERNAL CT - STORE ONLY ( 4:21 PM)Only the most recent of2 resultswithin the time period is included.
[2016-10-25 16:00] VITALS: BP 134/52
== END 2016-10-25 15:58 | disposition home or self-care (01) ==
LOC: ER 14:32
DX: S22.32XA Fracture of one rib, left side, initial encounter for closed fracture (principal); M81.0 Age-related osteoporosis without current pathological fracture; J44.9 Chronic obstructive pulmonary disease, unspecified; I10 Essential (primary) hypertension; E78.5 Hyperlipidemia, unspecified; F41.8 Other specified anxiety disorders